=== PATIENT | male | born 1970 | race Hispanic/Latino ===

== ENCOUNTER 2017-01-03 06:27 | Emergency (ER) | payer OTHER ==
[~2017-01-03] VITALS: Ht 165.1 cm; Wt 76.4 kg
[2017-01-03 06:35] VITALS: BP 137/74; PULSE 81; RESP 22; O2SAT 98
--- NOTE | 2017-01-03 06:37 | ED.REPORT ---
HPI-Extremity Problem Upper Date of Service Jan 03, 2017 ED Provider: Dr. Reyes The pt is a 46 y/o male with no pertinent hx who presents to the ED complaining of right shoulder pain, onset last night after a ground level fall. His arm was extended during the fall. The pt denies decreased sensation in the right arm and hand. There are no other complaints at this time. Nursing Notes Stated Complaint: POSS DISLOCATED SHOULDER Chief Complaint: Extremity Trauma Nursing Notes Reviewed: Yes Allergies: Coded Allergies: No Known Allergies (Unverified , 01/03/17) General Time Seen by MD: 06:37 Chief Complaint Shoulder injury right Hx Obtained From: Patient Arrived By: Walk-in Onset Occurred: Yesterday Symptom Duration: Since onset Caused by: Fall on ground Location: : Shoulder right Quality: Painful Severity: Current: Severe Severity: Maximum: Severe Recent Healthcare: No recent doctor visit Similar Sx Previous: No Past Medical History Past Medical History none reported Past Surgical History none reported Smoking History Unknown if Ever Smoker Social History Other Social History: Good social support Ambulatory Status Independent Review of Systems Denies: decreased sensation in the right arm and hands Musculoskeletal: Reports: Joint pain (right shoulder) Complete sys rev & neg: except as marked. Physical Exam Initial Vital Signs Vital Signs (First) Date Time Temp Pulse Resp B/P Pulse Ox O2 Delivery O2 Flow Rate FiO2 01/03/17 06:35 36.1 81 22 137/74 98 Room Air Head / Eyes: Atraumatic, Normocephalic Neck: Supple, Non-tender, Full range of motion Respiratory: Breath sounds normal, Clear to auscultation, No respiratory distress Cardiovascular: Regular rate & rhythm, Heart sounds normal, Intact distal pulses Abdomen / GI: Soft, Non-tender, No guarding, No rebound, No distention Lower Extremities: Vascular intact, Neuro intact, No swelling, No tenderness Skin: Warm, Dry, No cyanosis Neurologic: Alert, Oriented, Nonfocal General/Constitutional: Awake, Alert, Well appearing, Cooperative Distress / Hydration: Positive: Distress mild Upper Extremity / MS: No swelling, No erythema, Neurologic intact, Vascular intact Tenderness at the proximal humerus. No sclapular or clavicular tenderness. Wrist / Hand: Atraumatic, Full range of motion, No swelling, No erythema, Non- tender, No deformity, Neurologic intact, Vascular intact Interpretation & Diagnostics X-Ray Interpretation Xray Interpretation: Dislocated shoulder X-Ray Ordered: Shoulder right Interpretation / Wet Read by: Wet read ED physician Interpretation: Dislocation Procedures Reduction Dislocated Shoulder Scapular manipulation and axial traction Time: 07:04 Procedure Performed by: ED physician Consent / Setup: Consent from patient, Time-out performed, Hand hygiene observed Procedural Sedation/Analgesia: Analgesia: Fentanyl Which Shoulder and Technique: Right shoulder Neurovascular: Intact pre-procedure, Intact post-procedure Post-Procedure / Complications: Reduced per examination, Procedure successful, X-ray disloc reduced, Shoulder immobilized, Condition improved, Tolerated procedure well, Patient stable Re-Eval/Medical Decision Med Decision/Clinical Course Fall with subsequent shoulder dislocation reduced at the bedside with scapular manipulation and traction. Good range of motion and neurovascularly intact afterwards. Placed in a shoulder sling, instructed to follow-up with orthopedics. Return and follow-up precautions given. Re-Evaluation/Progress #1: Time of Eval: 06:51 Re-Evaluation/Progress Note: Rechecked pt. Discussed imaging and plan to reduce the dislocated shoulder. The pt understands and agrees with th plan. All questions answered. Re-Evaluation/Progress #2: Time of Eval: 07:13 Re-Evaluation/Progress Note: Rechecked pt. Discussed post-reduction imaging results, diagnosis and plan to discharge. Pt understands and agrees with the plan. F/U instruction and RTER warning given. All questions addressed. Counseled Regarding: Diagnosis, Need for follow-up, When/why to return to ED Discharge & Departure Impression: Primary Impression: Shoulder dislocation Encounter type: initial encounter Laterality: right Qualified Code: S43.004A - Unspecified dislocation of right shoulder joint, initial encounter Disposition: Home Discharge Condition All VS Reviewed: Yes Condition: Stable Patient Instructions: Shoulder Dislocation (ED) Additional Instructions: Your shoulder was dislocated. It was put back in to place while you were in the ER. Wear the shoulder immobilizer at all times while awake. Use Tylenol or ibuprofen as needed for pain. Call orthopedics for follow-up in 1 week. Referrals: Pravin Magallon MD [facility] Scribe Attestation Portions of this note were transcribed by Janae Malone. I,, personally performed the history,physical exam and medical decision-making;I reviewed and confirmed the accuracy of the information in the transcribed note. Signed by Sravani Hurtado. 01/03/17 copies to: Pravin Magallon MD, Timothy S DO Jan 03, 2017 06:37 Janae Malone Jan 03, 2017 06:42
[2017-01-03] MEDS ORDERED: fentaNYL-PF 50 mCg/mL 2 mL Inj IVPUSH PRN (06:45)
[2017-01-03] MEDS ORDERED: Ondansetron 2 mg/mL 2 mL Inj IVPUSH PRN (06:45)
--- NOTE | 2017-01-03 07:27 | DRSVH ---
PROCEDURE: X-RAY RIGHT SHOULDER, MINIMUM TWO VIEWS ([id number]) INDICATIONS: gross deformity s/p injury TECHNIQUE: 2 views of the shoulder were acquired. COMPARISON: None. FINDINGS: Bones: Anterior-inferior right glenohumeral joint dislocation. No fractures. No suspicious bony les ions. Visualized ribs appear intact. Soft tissues: No suspicious soft tissue calcifications. IMPRESSION: Anterior-inferior right glenohumeral joint dislocation. Recommend radiographs following r elocation to evaluate for fracture. Dictated by: Mu Duran M.D. on 01/03/2017 at 7:24 Approved by: Mu Duran M.D. on 01/03/2017 at 7:25
[2017-01-03 07:37] VITALS: BP 128/75; PULSE 80; RESP 16; O2SAT 99
[2017-01-03] MEDS ORDERED: Ketorolac 15 mg/mL Inj IVPUSH ONE (07:45)
--- NOTE | 2017-01-03 08:07 | DRSVH ---
PROCEDURE: X-RAY RIGHT SHOULDER, MINIMUM TWO VIEWS ([id number]) INDICATIONS: reduction TECHNIQUE: 2 views of the shoulder were acquired. COMPARISON: [facility], CR, XR SHOULDER MIN 2VW RT, 01/03/2017, 6:45. FINDINGS: Bones: There is likely relocation of the right glenohumeral joint although the scapular view is obscu red by suboptimal positioning. No definite fractures. Soft tissues: No suspicious soft tissue calcifications. IMPRESSION: Likely relocation of the right glenohumeral joint although evaluation is limited by subop timal positioning. If relocation cannot be confirmed clinically, repeat radiographs possibly with agg ressive pain control to allow optimal positioning would be needed. Dictated by: Mu Duran M.D. on 01/03/2017 at 8:03 Approved by: Mu Duran M.D. on 01/03/2017 at 8:05
== END 2017-01-03 08:00 | disposition home or self-care (01) ==
LOC: SED 06:27
DX: S43.014A Anterior dislocation of right humerus, initial encounter (principal); W18.30XA Fall on same level, unspecified, initial encounter; Y93.89 Activity, other specified; Y99.8 Other external cause status; Y92.018 Other place in single-family (private) house as the place of occurrence of the external cause
CPT/HCPCS: 23650; 73030; 96374; 96375; 99284; J1885; J2405; J3010